=== PATIENT | male | born 1970 | race Caucasian/White ===

== ENCOUNTER 2018-04-19 11:57 | Emergency (ER) | payer OTHER ==
[~2018-04-19] VITALS: Ht 182.9 cm; Wt 86.2 kg
[~2018-04-19 11:57] MED LIST: AMOX250C PO; CYCL10TA2 PO; FERR325T14 PO; FLUO10CA13 PO; HYDR-2761 PO; HYDR-2765 PO; IBUP200T77 PO; MELO7.5T29 PO; OXYC-316 PO; OXYC1TAB22 PO; SENN1TAB70 PO; TIZA4TAB PO
[2018-04-19 12:09] VITALS: BP 161/90
--- NOTE | 2018-04-19 13:14 | PHYS DOC ---
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 No new injury no fever no new symptoms at all this has been ongoing for 8 months. Review of Systems Review of Systems Mild numbness at the site Allergies Allergies Allergies Coded Allergies Type Severity Reaction Last Updated Verified No Known Drug Allergies 09/17/14 No Physical Exam Physical Exam Constitutional: Well developed, well nourished, no acute distress, non-toxic appearance. [] HENT: Normocephalic, atraumatic, bilateral external ears normal, oropharynx moist, no oral exudates, nose normal. [] Eyes: PERRLA, EOMI, conjunctiva normal, no discharge. [] Neck: Normal range of motion, no tenderness, supple, no stridor. 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 [] Psychologic: Affect normal, judgement normal, mood normal. [] Current Patient Data Vital Signs Vital Signs Date Time Temp Pulse Resp B/P (MAP) Pulse Ox O2 Delivery O2 Flow Rate FiO2 04/19/18 12:09 98.2 74 16 161/90 (113) 98 Room Air 98.2 EKG EKG [] Radiology/Procedures Radiology/Procedures [] Course & Med Decision Making Course & Med Decision Making Pertinent Labs and Imaging studies reviewed. (See chart for details) []Apparent chronic overuse injury of the right elbow some mild weakness of the right hand which is long-standing according to the patient he mainly was here for work nor did tell me that his back to Workmen's Comp. for long-term time off work as indicated or necessary pending their evaluation. In the meantime we did give her usual maximum 3 days off work for comfort. He has oxycodone he showed me the bottle it appeared to have several tablets remaining Dragon Disclaimer Dragon Disclaimer This electronic medical record was generated, in whole or in part, using a voice recognition dictation system. Departure Departure Impression: Primary Impression: Right elbow pain Additional Impression: Elevated blood pressure reading Disposition: HOME, SELF-CARE Condition: STABLE Patient Instructions: Tennis Elbow, [id number] Additional Instructions: get bp checked in one month Problem Qualifiers DEMARIO BEAN MD Apr 19, 2018 13:14
== END 2018-04-19 12:55 | disposition home or self-care (01) ==
LOC: ER 11:57
DX: S59.901A Unspecified injury of right elbow, initial encounter (principal); R03.0 Elevated blood-pressure reading, without diagnosis of hypertension; X50.9XXA Other and unspecified overexertion or strenuous movements or postures, initial encounter; Y93.89 Activity, other specified; Y92.89 Other specified places as the place of occurrence of the external cause; Y99.8 Other external cause status
CPT/HCPCS: 99281

== ENCOUNTER 2018-04-24 15:28 | Emergency (ER) | payer OTHER ==
[~2018-04-24] VITALS: Ht 182.9 cm; Wt 86.2 kg
[~2018-04-24 15:28] MED LIST changes: -TIZA4TAB PO; +TIZA4TAB2 PO
[2018-04-24 15:32] VITALS: BP 149/95
--- NOTE | 2018-04-24 16:06 | PHYS DOC ---
Past Medical History Past Medical History: No Pertinent History Past Surgical History: Other Additional Past Surgical Histo: BACK Alcohol Use: None Drug Use: None Adult General Chief Complaint Chief Complaint: UPPER EXTREMITY PAIN HPI HPI Patient is a 47 year old male with no significant medical history who presents today complaining of 8 out of 10 ongoing right upper extremity pain specifically from the elbow to the wrist that has been going on for 8 months. Patient states that 8 months ago he got injured at work. He states this is "a workman comp issue", he states he was already seen by workman comp doctor who diagnosed him with tennis elbow. He states unfortunately they're not helping him because they keep asking him to go back to work. 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 He states his job involves constant repetitive movements involving right upper extremity which he is not able to do. He states he is right-handed. 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 He is asking to be relieved from work. Informed patient we do not do disability paperwork in the ED. I recommended he follows up with the workman comp doctor as well as orthopedic doctor and they can take care or disability issues. Offered 3 days off work. He states is currently on oxycodone which makes him feel sleepy asked him to take OTC ibuprofen if needed. I offered patient an orthopedic doctor for referral. Instructed him to continue taking his oxycodone. Review of Systems Review of Systems Constitutional: Denies fever or chills [] Musculoskeletal: Reports chronic right elbow pain radiating to the right wrist. Integument: Denies rash or skin lesions [] Neurologic: Denies headache, focal weakness or sensory changes [] All other systems were reviewed and found to be within normal limits, except as documented in this note. Allergies Allergies Allergies Coded Allergies Type Severity Reaction Last Updated Verified No Known Drug Allergies 09/17/14 No Physical Exam Physical Exam Constitutional: Well developed, well nourished, no acute distress, non-toxic appearance. [] Skin: Warm, dry, no erythema, no rash. [] Back: No tenderness, no CVA tenderness. [] Extremities: Right upper extremity with no obvious deformity, no redness to the elbow, slight tenderness on palpation diffusely throughout the elbow. Full passive range of motion to the right upper extremity. Slightly decreased first press operator. + 2 right radial pulse. Adequate radial, medial, ulnar sensation to the right upper extremity. Cap refill less than 2 seconds the right fingers. Neurologic: Alert and oriented X 3, normal motor function, normal sensory function, no focal deficits noted. [] Psychologic: Affect normal, judgement normal, mood normal. [] Current Patient Data Vital Signs Vital Signs Date Time Temp Pulse Resp B/P (MAP) Pulse Ox O2 Delivery O2 Flow Rate FiO2 04/24/18 15:32 98.0 78 16 149/95 (113) 98 Room Air 98.0 EKG EKG [] Radiology/Procedures Radiology/Procedures [] Course & Med Decision Making Course & Med Decision Making Pertinent Labs and Imaging studies reviewed. (See chart for details) This is a 47-year-old male patient presenting to the ED today with ongoing right elbow pain radiating to the right wrist for 8 months due to a work- related injury. The see history of present illness Staff Physician Addendum: I was working in the ER during the course of this patient's visit. I was available for consultation as needed, but I was not directly involved in the care of this patient. Dragon Disclaimer Dragon Disclaimer This electronic medical record was generated, in whole or in part, using a voice recognition dictation system. Departure Departure Impression: Primary Impression: Right elbow pain Disposition: 01 HOME, SELF-CARE Condition: STABLE Referrals: CATHERINE VILLAR MD (PCP) LAMINE MONTIEL MD follow up in one to two weeks Patient Instructions: Musculoskeletal Pain Additional Instructions: You were evaluated in the emergency room for ongoing right elbow pain radiating to the right upper extremity. Continue taking oxycodone at home as needed for pain. Follow-up with the provided specialist in 1-2 weeks. ALO CAMARGO APRN Apr 24, 2018 16:06 DEMARIO BEAN MD Apr 24, 2018 17:58
== END 2018-04-24 16:31 | disposition home or self-care (01) ==
LOC: ER 15:28
DX: M25.521 Pain in right elbow (principal)
CPT/HCPCS: 99281

== ENCOUNTER 2018-04-28 10:21 | Emergency (ER) | payer OTHER ==
[~2018-04-28] VITALS: Ht 182.9 cm; Wt 86.2 kg
[~2018-04-28 10:21] MED LIST changes: +TIZA4TAB PO; -TIZA4TAB2 PO
[2018-04-28 10:30] VITALS: BP 131/84
--- NOTE | 2018-04-28 10:52 | PHYS DOC ---
Past Medical History Past Medical History: No Pertinent History Past Surgical History: Lumbar Laminectomy Additional Past Surgical Histo: BACK Alcohol Use: None Drug Use: None Adult General Chief Complaint Chief Complaint: UPPER EXTREMITY PAIN [facility] HPI Patient is a 47 year old male with no significant medical history who presents today complaining of 8 out of 10 ongoing right upper extremity pain specifically from the elbow to the wrist that has been going on for 8 months. Pain has been present for 8 months after due too an injury at work. He states he was already seen by workwrangell comp doctor and also follows up with the pain clinic and is currently on oxycodone. 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 Patient was seen in the ED by me 3 days ago for the same complaint on 04/28/2018 and requested a note for work, he was seen in the ED 3 days earlier on 04/19/2018 and given another note for work. He had told me the last time i saw him he will keep coming to the emergency room for his work month comp related injury until we do something about it and will continue asking for notes for work until "someone does something about his injury". He states he also wants another note for work. Informed patient I will not give him any more notes for work. We've given him 6 days off already considering his been here twice in the same 7 days. I provided him an orthopedic doctor again for follow-up. He states he'll keep coming back to the ED for more work notes. Informed patient the ED is not created to provide work notes for chronic illnesses. NO WORK NOTE GIVEN. Review of Systems Review of Systems Constitutional: Denies fever or chills [] Eyes: Denies change in visual acuity, redness, or eye pain [] HENT: Denies nasal congestion or sore throat [] Respiratory: Denies cough or shortness of breath [] Cardiovascular: No additional information not addressed in HPI [] GI: Denies abdominal pain, nausea, vomiting, bloody stools or diarrhea [] : Denies dysuria or hematuria [] Musculoskeletal: Denies back pain or joint pain [] Integument: Denies rash or skin lesions [] Neurologic: Denies headache, focal weakness or sensory changes [] Endocrine: Denies polyuria or polydipsia [] All other systems were reviewed and found to be within normal limits, except as documented in this note. Allergies Allergies Allergies Coded Allergies Type Severity Reaction Last Updated Verified No Known Drug Allergies 09/17/14 No Physical Exam Physical Exam Constitutional: Well developed, well nourished, no acute distress, non-toxic appearance. [] Extremities: Right upper extremity with no obvious deformity, full range of motion to the right upper extremity. Slightly diminished steam hand to the right upper extremity which is chronic. Adequate radial, medial, ulnar sensation to the right upper extremity. +2 right radial pulse. Neurologic: Alert and oriented X 3, normal motor function, normal sensory function, no focal deficits noted. [] Psychologic: Affect normal, judgement normal, mood normal. [] Current Patient Data Vital Signs Vital Signs Date Time Temp Pulse Resp B/P (MAP) Pulse Ox O2 Delivery O2 Flow Rate FiO2 04/28/18 10:30 97.9 66 16 131/84 (100) 97 Room Air 97.9 EKG EKG [] Radiology/Procedures Radiology/Procedures [] Course & Med Decision Making Course & Med Decision Making Pertinent Labs and Imaging studies reviewed. (See chart for details) See history of present illness Dragon Disclaimer Dragon Disclaimer This electronic medical record was generated, in whole or in part, using a voice recognition dictation system. Departure Departure Impression: Primary Impression: Right elbow pain Disposition: HOME, SELF-CARE Condition: STABLE Referrals: CATHERINE VILLAR MD (PCP) CATHERINE DOUGLAS MD follow up as soon as you can Patient Instructions: Musculoskeletal Pain Additional Instructions: You were seen for ongoing right upper extremity pain from a work-related injury. Please follow-up with this patient was provided. ALO CAMARGO APRN Apr 28, 2018 10:52
== END 2018-04-28 10:56 | disposition home or self-care (01) ==
LOC: ER 10:21
DX: M25.521 Pain in right elbow (principal)
CPT/HCPCS: 99281

== ENCOUNTER 2020-01-16 08:38 | Emergency (ER) | payer SELFPAY ==
[~2020-01-16] VITALS: Ht 182.9 cm; Wt 90.0 kg
[~2020-01-16 08:38] MED LIST changes: -TIZA4TAB PO; +TIZA4TAB2 PO
[2020-01-16 08:57] VITALS: BP 143/43
[2020-01-16] MEDS ORDERED: LIDOCAINE 2% VISCOUS 15 ML SOLUTION. SWSW ONE (09:30)
[2020-01-16] MEDS ORDERED: IBUPROFEN 400 MG TABLET. PO ONE (09:30)
[2020-01-16] MEDS ORDERED: AMOXICILLIN 250 MG CAPSULE. PO ONE (09:30)
--- NOTE | 2020-01-16 09:37 | PHYS DOC ---
Past Medical History Past Medical History: No Pertinent History Past Surgical History: Lumbar Laminectomy Additional Past Surgical Histo: BACK Smoking Status: Current Every Day Smoker Alcohol Use: None Drug Use: None General Adult EDM: Chief Complaint: DENTAL PROBLEM HPI: HPI: Patient is a 49 year old male who presented to ER today for evaluation of 3-day history of lower jaw pain and swelling. Patient denies any fever, no headache, no cough, no nausea vomiting. Patient denies being exposed to anybody who tested positive for COVID-19. Review of Systems: Review of Systems: Constitutional: Denies fever or chills. [] Eyes: Denies change in visual acuity. [] HENT: Positive for dental pain, lower jaw swelling. Respiratory: Denies cough or shortness of breath. [] Cardiovascular: Denies chest pain or edema. [] GI: Denies abdominal pain, nausea, vomiting, bloody stools or diarrhea. [] : Denies dysuria. [] Musculoskeletal: Denies back pain or joint pain. [] Integument: Denies rash. [] Neurologic: Denies headache, focal weakness or sensory changes. [] Endocrine: Denies polyuria or polydipsia. [] Lymphatic: Denies swollen glands. [] Psychiatric: Denies depression or anxiety. [] Heart Score: Risk Factors: Risk Factors: DM, Current or recent (<one month) smoker, HTN, HLP, family history of CAD, obesity. Risk Scores: Score 0 - 3: 2.5% MACE over next 6 weeks - Discharge Home Score 4 - 6: 20.3% MACE over next 6 weeks - Admit for Clinical Observation Score 7 - 10: 72.7% MACE over next 6 weeks - Early Invasive Strategies Current Medications: Current Medications Medications (Trade) Dose Ordered Sig/Mckayla Start Time Stop Time Status Last Admin Dose Admin Amoxicillin (Amoxil) 1,000 mg 1X ONCE 01/16/20 09:30 01/16/20 09:31 DC Ibuprofen (Motrin) 800 mg 1X ONCE 01/16/20 09:30 01/16/20 09:31 DC Lidocaine HCl (Viscous Lidocaine) 15 ml 1X ONCE 01/16/20 09:30 01/16/20 09:31 DC Allergies: Allergies: Allergies Coded Allergies Type Severity Reaction Last Updated Verified No Known Drug Allergies 09/17/14 No Physical Exam: PE: Constitutional: Well developed, well nourished, no acute distress, non-toxic appearance. [] HENT: Normocephalic, atraumatic, bilateral external ears normal, oropharynx moist, no oral exudates, nose normal. Left lower jaw swelling. There is diffused dental decay, there is a palpable indurated abscess on left lower gumli ne area around 1 molar area. Eyes: PERRLA, EOMI, conjunctiva normal, no discharge. [] Neck: Normal range of motion, no tenderness, supple, no stridor. [] Cardiovascular:Heart rate regular rhythm, no murmur [] Lungs & Thorax: Bilateral breath sounds clear to auscultation [] Abdomen: Bowel sounds normal, soft, no tenderness, no masses, no pulsatile masses. [] Skin: Warm, dry, no erythema, no rash. [] Back: No tenderness, no CVA tenderness. [] Extremities: No tenderness, no cyanosis, no clubbing, ROM intact, no edema. [] Neurologic: Alert and oriented X 3, normal motor function, normal sensory function, no focal deficits noted. [] Psychologic: Affect normal, judgement normal, mood normal. [] Current Patient Data: Vital Signs: Vital Signs Date Time Temp Pulse Resp B/P (MAP) Pulse Ox O2 Delivery O2 Flow Rate FiO2 01/16/20 08:57 98.7 62 18 143/43 (76) 98 Room Air 98.7 EKG: EKG: [] Radiology/Procedures: Radiology/Procedures: Indication: abscess Procedure: The patient was positioned appropriately. Local anesthesia was used, viscous lidocaine. An incision was then made over the apex of the lesion with number 11 scalp large amount of whitish pus was expressed. The patient tolerated the procedure well. Complications: none. Course & Med Decision Making: Course & Med Decision Making Pertinent Labs and Imaging studies reviewed. (See chart for details) [] Dragon Disclaimer: Dragon Disclaimer: This electronic medical record was generated, in whole or in part, using a voice recognition dictation system. Departure Departure Impression: Primary Impression: Dental abscess Disposition: 01 HOME, SELF-CARE Condition: IMPROVED Referrals: NO PCP (PCP) please follow up with your dentist this week. Patient Instructions: Dental Abscess Additional Instructions: Thank you for visiting our Emergency Department. We appreciate you trusting us with your care. If any additional problems come up don't hesitate to return to visit us. Please follow up with your primary care provider so they can plan additional care if needed and know about the problem that you had. If symptoms worsen come back to the Emergency Department. Any concerning symptoms that start such as chest pain, shortness of air, weakness or numbness on one side of the body, running high fevers or any other concerning symptoms return to the ER. Scripts Ibuprofen (IBUPROFEN) 800 Mg Tablet 800 MG PO PRN Q6HRS PRN for PAIN, #30 TAB Prov: ANDREAS PAPPAS DO 01/16/20 Amoxicillin (AMOXICILLIN) 500 Mg Capsule 1 CAP PO TID, #30 CAP Prov: ANDREAS PAPPAS DO 01/16/20 ANDREAS PAPPAS DO Jan 16, 2020 09:37
[2020-01-16] MEDS ORDERED: IBUP-1060 PO (10:05)
[2020-01-16] MEDS ORDERED: AMOX500C PO (10:05)
== END 2020-01-16 10:13 | disposition home or self-care (01) ==
LOC: ER 08:38
DX: K04.7 Periapical abscess without sinus (principal); F17.200 Nicotine dependence, unspecified, uncomplicated
CPT/HCPCS: 41800; 99284